=== PATIENT | female | born 2000 | race Caucasian/White ===

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

== ENCOUNTER 2023-12-14 10:20 | Inpatient (IN) | payer OTHER ==
[2023-12-14] MEDS ORDERED: SODIUM CHLORIDE 100 ML IVPB ONE ×2 (11:11→15:25)
[2023-12-14] MEDS ORDERED: AMPICILLIN SODIUM 2 GM VIAL ONE (11:11)
[2023-12-14 11:26] VITALS: BMI 27.2
[2023-12-14 11:41] LABS: BASO % 0.4 % (0-2.0); EOS % 1.6 % (0-4.5); HEMATOCRIT 32.7 % (32.4-45.2); HEMOGLOBIN 10.6 GM/dL (10.7-15.3); LYMPH % 14.6 % (8-40); MCH 26.6 pg (25.7-33.7); MCHC 32.5 g/dl (32.0-36.0); MEAN CELL VOLUME 82.1 fl (80-96); MEAN PLT VOLUME 9.3 fl (7.5-11.1); MONO % 5.9 % (3.8-10.2); NEUT % 77.5 % (42.8-82.8); PLATELET COUNT 201 10^3/uL (134-434); RBC 3.98 M/mm3 (3.60-5.2); RDW 14.4 % (11.6-15.6); WHITE BLOOD COUNT 8.8 K/mm3 (4.0-10.0)
[2023-12-14 11:46] LABS: INR 1.02 (0.83-1.09); PROTHROMBIN TIME (PATIENT) 11.5 SEC (9.7-13.0)
[2023-12-14 11:49] LABS: ACTIVATED PTT 29.7 SECONDS (25.2-36.5)
[2023-12-14 12:03] LABS: BLOOD UREA NITROGEN 5.2 mg/dL (7-18); CALCIUM 8.1 mg/dL (8.5-10.1); POTASSIUM 3.5 mmol/L (3.5-5.1)
[2023-12-14] MEDS: AMPICILLIN - 2 GM in SODIUM CHLORIDE 100 ML IVPB ONE (12:04)
[2023-12-14] MEDS: ELECTROLYTE-148 SOLN 1,000 ML IV SCH ×2 (12:04→18:50)
[2023-12-14 12:07] LABS: CREATININE 0.4 mg/dL (0.55-1.3)
[2023-12-14] MEDS ORDERED: OXYTOCIN 30 UNITS in 0.9% NS 30 UNIT/500 ML INFUS.BAG IVPB ONE (13:14)
[2023-12-14] MEDS: OXYTOCIN 30 UNITS in 0.9% NS 30 UNIT/500 ML INFUS.BAG IVPB SCH (13:44)
[2023-12-14] MEDS ORDERED: AMPICILLIN SODIUM 1 GM VIAL ONE ×2 (15:25→20:36)
[2023-12-14] MEDS: AMPICILLIN - 1 GM in SODIUM CHLORIDE 100 ML IVPB SCH ×2 (15:42→22:02)
[2023-12-14] MEDS ORDERED: BUTORPHANOL TARTRATE 2 MG/ML VIAL ONE (20:35)
[2023-12-14] MEDS ORDERED: PROMETHAZINE HCL 25 MG/1 ML VIAL ONE (20:36)
[2023-12-14] MEDS: BUTORPHANOL TARTRATE 1 MG/ML VIAL IVPB ONE (21:10)
[2023-12-14] MEDS: PROMETHAZINE HCL 25 MG/1 ML VIAL IVPB ONE (21:10)
[2023-12-14] MEDS ORDERED: OXYTOCIN 20 UNITS in 0.9% NS 20 UNIT/1,000 ML INFUS.BAG IV ONE (23:23)
[2023-12-14] MEDS: OXYTOCIN 20 UNITS in 0.9% NS 20 UNIT/1,000 ML INFUS.BAG IV SCH (23:51)
[2023-12-14] MEDS ORDERED: MISOPROSTOL 200 MCG TABLET ONE (23:53)
[2023-12-15] MEDS ORDERED: WITCH HAZEL 50% (TUCKS) 40 PAD/JAR PAD TP PRN (00:30)
[2023-12-15] MEDS ORDERED: BISACODYL 10 MG SUPP.RECT RC PRN (00:30)
[2023-12-15] MEDS ORDERED: METHYLERGONOVINE MALEATE 0.2 MG/1 ML AMP IM PRN (00:30)
[2023-12-15] MEDS ORDERED: BENZOCAINE 28 GM HEMORRHOIDAL OINTMENT TP PRN (00:30)
[2023-12-15] MEDS ORDERED: BENZOCAINE 20% 57 GM BOTTLE TP PRN (00:30)
[2023-12-15] MEDS: IBUPROFEN 600 MG TABLET (FP) PO PRN (04:59)
[2023-12-15] MEDS: PRENATAL VITAMINS W/ FOLIC ACID TABLET (FP) PO SCH (09:16)
[2023-12-15] MEDS: FERROUS SO4 325 MG TABLET (FP) PO SCH (09:16)
[2023-12-15 10:45] VITALS: RESP 18
[2023-12-15 13:15] LABS: POC NITRAZINE NEG
[2023-12-15] MEDS: ACETAMINOPHEN 325 MG TABLET (FP) PO PRN (13:54)
[2023-12-16 07:24] LABS: BASO % 0.3 % (0-2.0); EOS % 1.9 % (0-4.5); HEMATOCRIT 31.7 % (32.4-45.2); HEMOGLOBIN 10.3 GM/dL (10.7-15.3); LYMPH % 26.1 % (8-40); MCH 27.1 pg (25.7-33.7); MCHC 32.6 g/dl (32.0-36.0); MEAN PLT VOLUME 9.6 fl (7.5-11.1); MONO % 7.7 % (3.8-10.2); PLATELET COUNT 209 10^3/uL (134-434); RBC 3.82 M/mm3 (3.60-5.2); RDW 14.4 % (11.6-15.6); WHITE BLOOD COUNT 8.6 K/mm3 (4.0-10.0)
[2023-12-16 08:29] VITALS: BP 116/83; PULSE 81; TEMP 97.8
[2023-12-16] MEDS ORDERED: SENNOSIDES/DOCUSATE COMBO (SENNA PLUS) TABLET (UD) PO PRN (22:00)
== END 2023-12-16 12:27 | disposition home or self-care (01) | DRG 560 ==
LOC: JLDR 10:20 → J3W 12-15 02:34
PROVIDERS: ADMIT Obstetrics & Gynecology; ATTEND Obstetrics & Gynecology
PROC: 10E0XZZ Delivery of Products of Conception, External Approach (ICD-10-PCS; principal; 2023-12-14)
DX: O80 Encounter for full-term uncomplicated delivery (principal); Z3A.38 38 weeks gestation of pregnancy; Z37.0 Single live birth
CPT/HCPCS: 36415; 59025; 59409; 80048; 83986-QW; 85025; 85610; 85730; 86780; 86850; 86900; 86901